=== PATIENT | female | born 1955 | race Caucasian/White ===

== ENCOUNTER 2020-08-18 06:08 | Inpatient (IN) | payer OTHER ==
[2020-08-14 13:17] LABS: COVID AG,FIA SOURCE NASOPHARYNGEAL
[2020-08-14 14:19] LABS: BASOPHILS % (AUTO) 1.7 % (0.0-2.0); EOSINOPHILS % (AUTO) 2.1 % (1.0-6.0); HEMATOCRIT 39.9 % (36-46); HEMOGLOBIN 13.5 g/dL (12.0-16.0); LYMPHOCYTES # (AUTO) 1.6 K/uL (1.0-4.8); LYMPHOCYTES % (AUTO) 36.3 % (22.0-44.0); MEAN CORPUSCULAR HEMOGLOBIN 29.8 pg (26.0-34.0); MEAN CORPUSCULAR HGB CONC 33.8 G/dL (31.0-37.0); MEAN CORPUSCULAR VOLUME 88 fL (80-100); MONOCYTES # (AUTO) 0.4 K/uL (0.1-1.0); MONOCYTES % (AUTO) 8.8 % (2.0-9.0); NEUTROPHILS # (AUTO) 2.3 K/uL (1.8-7.7); NEUTROPHILS % (AUTO) 51.1 % (40.0-70.0); PLATELET COUNT (AUTO) 209 K/uL (150-450); RED BLOOD CELL COUNT(AUTO) 4.53 MIL/uL (4.00-5.20); RED CELL DISTRIBUTION WIDTH 12.7 % (11.5-14.5)
[2020-08-14 14:24] LABS: ANION GAP 6 mmol/L (8-16); CARBON DIOXIDE 28 mmol/L (22-29); CHLORIDE 107 mmol/L (98-107); CREATININE 0.93 mg/dL (0.60-1.30); GLOMERULAR FILTR. RATE CALC > 60 mL/min (>60); GLUCOSE,RANDOM 84 mg/dL (70-110); POTASSIUM 3.7 mmol/L (3.5-5.1); SODIUM SERUM 141 mmol/L (136-145); UREA NITROGEN, BLOOD 11 mg/dL (7-18)
[2020-08-14 14:28] LABS: PROTHROMBIN TIME 10.9 SEC (9.4-11.6)
[2020-08-14 14:29] LABS: ALANINE AMINOTRANSFERASE 21 U/L (12-78); ALBUMIN 3.5 g/dL (3.4-5.0); ALKALINE PHOSPHATASE 77 U/L (46-116); ASPARTATE AMINOTRANSFERASE 19 U/L (15-37); BILIRUBIN,TOTAL 0.4 mg/dL (0.1-1.0); TOTAL PROTEIN, SERUM 6.2 g/dL (6.4-8.2)
[~2020-08-18] VITALS: Ht 175.3 cm; Wt 70.5 kg
[~2020-08-18 06:08] MED LIST: BIEST CREAM TP; CeFAZolin 2 GM/DEXTROSE 50 ML IV ONE; FLUO-191 PO; LEVO75 PO; PROG100C24 PO; RINGERS SOLUTION,LACTATED 1,000 ML IV ONE
[2020-08-18] MEDS ORDERED: CeFAZolin 2 GM/DEXTROSE 50 ML IV ONE (06:30)
[2020-08-18] MEDS ORDERED: RINGERS SOLUTION,LACTATED 1,000 ML IV ONE ×3 (06:30→11:49)
[2020-08-18] MEDS ORDERED: BUPIVACAINE LIPOSOME/PF 1.3%-13.3MG/ML SUSPENSION 20 ML VIAL INJ ONE (06:45)
[2020-08-18] MEDS ORDERED: BUPIVACAINE HCL 0.5% 50 ML VIAL ONE (07:00)
[2020-08-18] MEDS ORDERED: MAG HYDROX/AL HYDROX/SIMETH 30 ML SUSP UDCUP PO PRN (07:45)
[2020-08-18] MEDS ORDERED: ZOLPIDEM TARTRATE 10 MG TABLET PO PRN (07:45)
[2020-08-18] MEDS ORDERED: DEXAMETHASONE SOD PHOS 4 MG/ML VIAL IVP PRN (07:45)
[2020-08-18] MEDS ORDERED: DiphenhydrAMINE HCL 50 MG/ML VIAL IVP PRN (07:45)
[2020-08-18] MEDS ORDERED: ACETAMINOPHEN 1000 MG/ISO-OSM 100 ML IV ONE (08:47)
[2020-08-18] MEDS ORDERED: PROPOFOL 1000 MG/ISO-OSM 100 ML IV ONE (08:47)
[2020-08-18] MEDS ORDERED: DOCUSATE SODIUM 100 MG CAPSULE PO SCH (09:00)
[2020-08-18] MEDS ORDERED: MEPERIDINE-PF 25 MG/ML VIAL IVP PRN (09:15)
[2020-08-18] MEDS ORDERED: HYDROmorphone 2 MG/ML VIAL IVP PRN (09:15)
[2020-08-18] MEDS ORDERED: FentaNYL CITRATE PF 100 MCG/2 ML VIAL IVP PRN (09:15)
[2020-08-18] MEDS ORDERED: LIDOCAINE/PF 2% 5 ML VIAL IM ONE (12:00)
[2020-08-18] MEDS ORDERED: EPHEDrine SULFATE 50 MG/ML VIAL IM ONE (12:00)
[2020-08-18] MEDS ORDERED: ONDANSETRON HCL 4 MG/2 ML VIAL IVP ONE (12:00)
[2020-08-18] MEDS ORDERED: KETAMINE HCL 50 MG/ML 10 ML VIAL IVP ONE (12:00)
[2020-08-18] MEDS ORDERED: FentaNYL CITRATE PF 100 MCG/2 ML VIAL IVP ONE (12:00)
[2020-08-18] MEDS ORDERED: MIDAZOLAM HCL 2 MG/2 ML VIAL IVP ONE (12:00)
[2020-08-18] MEDS ORDERED: 0.9% SODIUM CHLORIDE 10 ML VIAL IVP ONE (12:00)
[2020-08-18] MEDS ORDERED: PROPOFOL 1% 20 ML VIAL IVP ONE (12:00)
[2020-08-18] MEDS ORDERED: DEXAMETHASONE SOD PHOS 4 MG/ML VIAL IVP ONE (12:00)
[2020-08-18] MEDS ORDERED: ROCURONIUM BROMIDE 10 MG/ML 5 ML VIAL IVP ONE (12:00)
[2020-08-18] MEDS ORDERED: ONDANSETRON HCL 4 MG/2 ML VIAL IVP PRN (12:45)
[2020-08-18] MEDS ORDERED: CYCLOBENZAPRINE HCL 10 MG TABLET PO PRN (12:45)
[2020-08-18] MEDS ORDERED: CELECOXIB 200 MG CAPSULE PO ONE (12:45)
[2020-08-18] MEDS: HYDROmorphone 2 MG/ML VIAL IVP PRN ×2 (13:39→17:58)
[2020-08-18 13:40] VITALS: BP 151/85
[2020-08-18 15:36] VITALS: BP 137/81
[2020-08-18 19:38] VITALS: BP 130/72
[2020-08-18] MEDS: ACETAMINOPHEN 1000 MG/ISO-OSM 100 ML IV SCH (19:39)
[2020-08-18] MEDS ORDERED: OXYGEN THERAPY IH SCH (20:00)
[2020-08-18 23:41] VITALS: BP 127/65
[2020-08-19] MEDS: ACETAMINOPHEN 1000 MG/ISO-OSM 100 ML IV SCH (03:42)
[2020-08-19 04:43] VITALS: BP 126/59
[2020-08-19 07:29] VITALS: BP 143/67
[2020-08-19] MEDS ORDERED: OxyCODONE HCL/ACETAMINOPHEN 10-325 MG TABLET PO PRN (12:45)
== END 2020-08-19 17:30 | disposition home or self-care (01) | DRG 473 ==
LOC: 4E 06:08
PROVIDERS: ADMIT Orthopaedic Surgery Orthopaedic Surgery of the Spine; ATTEND Orthopaedic Surgery Orthopaedic Surgery of the Spine
PROC: 0RG40A0 Fusion of Cervicothoracic Vertebral Joint with Interbody Fusion Device, Anterior Approach, Anterior Column, Open Approach (ICD-10-PCS; 2020-08-18)
PROC: 0RB30ZZ Excision of Cervical Vertebral Disc, Open Approach (ICD-10-PCS; 2020-08-18)
PROC: 0RB50ZZ Excision of Cervicothoracic Vertebral Disc, Open Approach (ICD-10-PCS; 2020-08-18)
PROC: 00NW0ZZ Release Cervical Spinal Cord, Open Approach (ICD-10-PCS; 2020-08-18)
PROC: 00NX0ZZ Release Thoracic Spinal Cord, Open Approach (ICD-10-PCS; 2020-08-18)
PROC: 4A11X4G Monitoring of Peripheral Nervous Electrical Activity, Intraoperative, External Approach (ICD-10-PCS; 2020-08-18)
PROC: 0RG20A0 Fusion of 2 or more Cervical Vertebral Joints with Interbody Fusion Device, Anterior Approach, Anterior Column, Open Approach (ICD-10-PCS; principal; 2020-08-18 10:19)
DX: M48.03 Spinal stenosis, cervicothoracic region (principal); F32.9 Major depressive disorder, single episode, unspecified
CPT/HCPCS: 87426; 93005; 97161; 97165; 97535; C9290; G0238; G0378; J0131; J0690; J1100; J1170; J2250; J2405; J2704; J3010; J3490; J7120